=== PATIENT | male | born 1975 | race Caucasian/White ===

== ENCOUNTER 2019-11-27 17:35 | Emergency (ER) | payer OTHER ==
[~2019-11-27] VITALS: Ht 182.9 cm; Wt 95.3 kg
[2019-11-27] MEDS ORDERED: NEURONTIN 300M300 M2 PO (17:46)
[2019-11-27] MEDS ORDERED: FLOMAX0.4 MG PO (17:46)
[2019-11-27] MEDS ORDERED: CYMBALTA20 MG PO (17:46)
[2019-11-27] MEDS ORDERED: AUGMENTIN 500-1 EACH PO (20:41)
[2019-11-27] MEDS ORDERED: ZOFRAN ODT4 MG PO (20:41)
[2019-11-27] MEDS ORDERED: HYDROCODON-ACE1 EA10 PO (20:41)
[2019-11-27] MEDS ORDERED: HYDROCODON-ACE1 EAC8 PO (20:49)
[2019-11-27 21:07] VITALS: BP 147/87
== END 2019-11-27 21:07 | disposition home or self-care (01) ==
LOC: M.ERS 17:35
DX: S02.85XA Fracture of orbit, unspecified, initial encounter for closed fracture (principal); S01.81XA Laceration without foreign body of other part of head, initial encounter; M19.90 Unspecified osteoarthritis, unspecified site; Z79.899 Other long term (current) drug therapy; V29.88XA Motorcycle rider (driver) (passenger) injured in other specified transport accidents, initial encounter; Y93.55 Activity, bike riding; Y92.413 State road as the place of occurrence of the external cause; Y99.9 Unspecified external cause status

== ENCOUNTER 2019-12-02 11:39 | Emergency (ER) | payer OTHER ==
[~2019-12-02] VITALS: Ht 180.3 cm; Wt 97.5 kg
[~2019-12-02 11:39] MED LIST: AUGMENTIN 500-1 EACH PO; CYMBALTA20 MG PO; FLOMAX0.4 MG PO; HYDROCODON-ACE1 EA10 PO; HYDROCODON-ACE1 EAC8 PO; NEURONTIN 300M300 M2 PO; ZOFRAN ODT4 MG PO
[2019-12-02 12:24] VITALS: BP 134/77
== END 2019-12-02 12:24 | disposition home or self-care (01) ==
LOC: M.ERS 11:39
DX: S01.81XD Laceration without foreign body of other part of head, subsequent encounter (principal); F17.210 Nicotine dependence, cigarettes, uncomplicated; M19.90 Unspecified osteoarthritis, unspecified site; Z79.899 Other long term (current) drug therapy; W26.9XXD Contact with unspecified sharp object(s), subsequent encounter

== ENCOUNTER 2020-03-15 14:05 | Emergency (ER) | payer OTHER ==
[~2020-03-15] VITALS: Ht 180.3 cm; Wt 93.4 kg
[2020-03-15 15:15] LABS: CALCIUM 8.8 mg/dL (8.5-10.1); CREATININE 1.1 mg/dL (0.6-1.3); HEMATOCRIT 45.6 % (42.0-52.0); HEMOGLOBIN 15.7 gm/dL (14.0-18.0); MCH 30.8 pg (26.0-34.0); MCHC 34.5 g/dL (28.0-37.0); MCV 89.3 fL (80.0-100.0); MPV 8.4 fl. (7.2-11.1); NUCLEATED RBCS 0 /100WBC; PLATELET COUNT* 228 thou/uL (150-400); RDW-CV 13.4 % (10.5-14.5); WBC 13.2 thou/uL (4.0-11.0)
[2020-03-15 15:20] LABS: ALBUMIN 4.3 g/dL (3.4-5.0); TOTAL PROTEIN 7.9 g/dL (6.4-8.2)
[2020-03-15 16:24] LABS: URINE BILIRUBIN NEGATIVE (Negative); URINE BLOOD 1+ (Negative); URINE CLARITY CLEAR; URINE COLOR YELLOW; URINE GLUCOSE-RANDOM NEGATIVE (Negative); URINE KETONES NEGATIVE (Negative); URINE LEUKOCYTES-REFLEX NEGATIVE (Negative); URINE NITRITE-REFLEX NEGATIVE (Negative); URINE PROTEIN NEGATIVE (Negative); URINE UROBILINOGEN 0.2 E.U./dl (0.2-1.0)
[2020-03-15 16:36] LABS: ABSOLUTE LYMPHOCYTES 0.4 thou/uL (0.8-5.3); ABSOLUTE MONOCYTES 0.3 thou/uL (0.0-1.2); ABSOLUTE NEUTROPHILS 12.5 thou/uL (1.6-8.1); PLATELET ESTIMATE ADEQUATE
[2020-03-15 16:41] LABS: CASTS None Seen /LPF (None Seen); CRYSTALS None Seen /LPF (None Seen); SQUAMOUS 0-3 Few /LPF (0-3); URINE RBC 0-2 Rare /HPF (0-2); URINE WBC-REFLEX 6-15 Few /HPF (0-5)
[2020-03-15 16:42] LABS: BACTERIA-REFLEX None Seen /HPF (None Seen)
[2020-03-15] MEDS ORDERED: ONDANSETRON HCL4 M2 PO (16:59)
[2020-03-15] MEDS ORDERED: PERCOCET PO (16:59)
[2020-03-15] MEDS ORDERED: IBUPROFEN 800800 M1 PO (16:59)
[2020-03-15 17:15] VITALS: BP 143/87
== END 2020-03-15 17:15 | disposition home or self-care (01) ==
LOC: M.ERS 14:05
PROVIDERS: Nurse Practitioner Family
DX: N20.1 Calculus of ureter (principal); K76.89 Other specified diseases of liver; M19.90 Unspecified osteoarthritis, unspecified site

== ENCOUNTER 2021-01-13 14:29 | Emergency (ER) | payer OTHER ==
[~2021-01-13] VITALS: Ht 180.3 cm; Wt 104.3 kg
[~2021-01-13 14:29] MED LIST changes: +IBUPROFEN 800800 M1 PO; +ONDANSETRON HCL4 M2 PO; +PERCOCET PO
[2021-01-13 16:13] VITALS: BP 181/98
== END 2021-01-13 16:13 | disposition home or self-care (01) ==
LOC: M.ERS 14:29
DX: Z20.822 Contact with and (suspected) exposure to COVID-19 (principal); M19.90 Unspecified osteoarthritis, unspecified site